=== PATIENT | female | born 1930 | race Caucasian/White ===

== ENCOUNTER → 2016-10-13 | Outpatient (CLI) | payer BC ==
[~2016-10-13] MED LIST: ACET325T96 PO; ALUMSUS17 PO; ATOR-24 PO; CETI10TA84 PO; CHOL100010 PO; CHOL200027; CYAN10005 PO; DICL1GEL28 TD; DIPH25TA24 PO; ESTR1CRE PV; FERR1TAB13 PO; FLUT0.15; HYDR-5688 PO; IMD/2 PO; INSDGI SC; LEVO50TA PO; LOSA1TAB PO; MAGNSUS5 PO; MELA3CAP PO; NOVOLOG U; NYSTCRE11; OMEP20CA59 PO; PRM625 PO; PSYL55.43 PO; SERT-234 PO
[2016-10-13 17:00] LABS: HEMATOCRIT 35.2 % (37-47); MEAN CELL VOLUME 99.4 fL (80-100); MEAN CORPUSCULAR HEMOGLOBIN 33.1 pg (25-34); MEAN CORPUSCULAR HGB CONC 33.2 g/dl (32-36); MEAN PLATELET VOLUME 9.5 fL (7.4-10.4); PLATELET COUNT 260 K/uL (130-400); RED BLOOD COUNT 3.54 M/uL (4.2-5.4); WHITE BLOOD COUNT 8.59 K/uL (4.8-10.8)
[2016-10-13 17:18] LABS: URINE APPEARANCE CLEAR (CLEAR); URINE BILIRUBIN NEG (NEG); URINE COLOR YELLOW; URINE EPITHELIAL CELL AUTO >30 /lpf (0-5); URINE NITRITE NEG (NEG); URINE PH 5.5 (4.5-7.5); URINE SPECIFIC GRAVITY 1.028 (1.000-1.030); UROBILINOGEN NEG (NEG)
[2016-10-13 17:38] LABS: BLOOD UREA NITROGEN 14 mg/dl (7-18); CALCIUM 8.6 mg/dl (8.5-10.1); CARBON DIOXIDE 28 mmol/L (21-32); CHLORIDE 108 mmol/L (98-107); GLUCOSE 140 mg/dl (70-99); POTASSIUM 3.9 mmol/L (3.5-5.1); SODIUM 143 mmol/L (136-145)
[2016-10-13 17:38] LABS: MANUAL MICROSCOPIC REQUIRED? NO; REVIEW REQ? NO
[2016-10-13 17:41] LABS: URINE PROTIEN/CREAT RATIO 0.4 (0-0.2); URINE TOTAL PROTEIN 62.1 mg/dl (0-11.9)
[2016-10-13 17:50] LABS: FERRITIN 196.2 ng/ml (8.0-388.0); PHOSPHORUS 3.1 mg/dl (2.5-4.9); TOTAL IRON BINDING CAPACITY 261 mcg/dl (250-450)
[2016-10-14 06:06] LABS: ESTIMATED AVERAGE GLUCOSE 169 mg/dl; HA1C FLAG Normal (Normal)
--- NOTE | 2016-10-30 09:19 | CODING QUERY MEDICAL NECESSITY ---
SUPPORTING DIAGNOSIS NEEDED A supporting diagnosis is required for the test/procedure performed on this patient in order for us to be reimbursed by the patient's insurance. Please provide a supporting diagnosis for the following test/procedure listed below next to the test name along with your signature. *If there is no additional diagnosis for this patient that would support the following test/procedure please document that below next to the test/procedure. Test(s)/Procedure(s) that require a supporting diagnosis: DOS 10/13 * Hba1c DIAGNOSIS: Provider Signature: Date: Thank you Laney Medeiros Health Information Management Once completed, please kindly fax back to [phone] For questions please call [phone]
== END | disposition home or self-care (01) ==
LOC: C.LABBC 15:56
PROVIDERS: ATTEND Internal Medicine Geriatric Medicine
DX: D64.9 Anemia, unspecified (principal); I12.9 Hypertensive chronic kidney disease with stage 1 through stage 4 chronic kidney disease, or unspecified chronic kidney disease; E03.9 Hypothyroidism, unspecified; N18.3 Chronic kidney disease, stage 3 (moderate); E53.8 Deficiency of other specified B group vitamins; E55.9 Vitamin D deficiency, unspecified; E11.9 Type 2 diabetes mellitus without complications

== ENCOUNTER → 2017-04-16 | Outpatient (CLI) | payer BC ==
[2017-04-16 10:52] LABS: ALT/SGPT 14 U/L (12-78); AST/SGOT 16 U/L (15-37); BLOOD UREA NITROGEN 13 mg/dl (7-18); BUN/CREATININE RATIO 9.8 (10-20); CALCIUM 9.2 mg/dl (8.5-10.1); CARBON DIOXIDE 25 mmol/L (21-32); CHLORIDE 109 mmol/L (98-107); GLUCOSE 151 mg/dl (70-99); POTASSIUM 3.9 mmol/L (3.5-5.1); SODIUM 143 mmol/L (136-145)
[2017-04-16 10:55] LABS: ALB/GLOB RATIO 0.7 (0.9-2); ALKALINE PHOSPHATASE 51 U/L (45-117)
== END | disposition home or self-care (01) ==
LOC: C.LAB1850 08:57
PROVIDERS: ATTEND Physician Assistant
DX: N18.3 Chronic kidney disease, stage 3 (moderate) (principal)

== ENCOUNTER → 2017-05-18 | Outpatient (CLI) | payer BC ==
--- NOTE | 2017-05-18 10:37 | DIAGNOSTIC IMAGING REPORT ---
ABDOMINAL ULTRASOUND COMPLETE HISTORY: Generalized abdominal pain.. COMPARISON: Renal ultrasound 01/10/2014. FINDINGS: Pancreas: The pancreas demonstrates a normal echotexture. Liver: Unremarkable. Gallbladder: The gallbladder is surgically absent. CBD: 7 mm. Kidneys: No hydronephrosis. Mild bilateral cortical renal thinning which is likely age-related. Spleen: Normal in size. Aorta: Normal in caliber. IVC: Patent. IMPRESSION: No significant abnormality identified within the within the abdomen. Prior cholecystectomy. Electronically signed by: Henrique Joseph M.D. 05/18/2017 10:36 AM Dictated Date/Time: 05/18/2017 10:32 AM
[2017-05-18 13:35] LABS: BASO % 0.4 %; BASO ABS # 0.04 K/uL (0-0.2); COMPLETE YES; EOS % 2.4 %; HEMATOCRIT 35.8 % (37-47); IG% 0.5 %; LYMPH % 24.4 %; MEAN CELL VOLUME 102.6 fL (80-100); MEAN CORPUSCULAR HEMOGLOBIN 33.5 pg (25-34); MEAN CORPUSCULAR HGB CONC 32.7 g/dl (32-36); MEAN PLATELET VOLUME 9.6 fL (7.4-10.4); MONO % 7.3 %; PLATELET COUNT 294 K/uL (130-400); RED BLOOD COUNT 3.49 M/uL (4.2-5.4); WHITE BLOOD COUNT 9.83 K/uL (4.8-10.8)
[2017-05-18 13:58] LABS: URINE PROTIEN/CREAT RATIO 0.3 (0-0.2)
[2017-05-18 15:01] LABS: ESTIMATED AVERAGE GLUCOSE 169 mg/dl; HA1C FLAG Normal (Normal)
[2017-05-18 16:16] LABS: ALT/SGPT 23 U/L (12-78); BLOOD UREA NITROGEN 19 mg/dl (7-18); BUN/CREATININE RATIO 13.5 (10-20); CALCIUM 8.8 mg/dl (8.5-10.1); CARBON DIOXIDE 25 mmol/L (21-32); CHLORIDE 107 mmol/L (98-107); CREATININE 1.43 mg/dl (0.60-1.20); GLUCOSE 125 mg/dl (70-99); POTASSIUM 4.2 mmol/L (3.5-5.1); SODIUM 141 mmol/L (136-145)
[2017-05-18 16:30] LABS: ALB/GLOB RATIO 0.7 (0.9-2); ALKALINE PHOSPHATASE 53 U/L (45-117); AST/SGOT 20 U/L (15-37); CHOLESTEROL 144 mg/dl (0-200); CHOLESTEROL/HDL RATIO 2.6; HDL CHOLESTEROL 56 mg/dl; LDL CHOLESTEROL CALCULATED 60 mg/dl; TRIGLYCERIDES 138 mg/dl (0-150); VERY LOW DENSITY LIPOPROT CALC 28 mg/dl
== END | disposition home or self-care (01) ==
LOC: C.ULTRBC 09:17
PROVIDERS: ATTEND Internal Medicine Geriatric Medicine
DX: R10.9 Unspecified abdominal pain (principal); E03.9 Hypothyroidism, unspecified; E78.5 Hyperlipidemia, unspecified; R35.1 Nocturia; E53.8 Deficiency of other specified B group vitamins; I10 Essential (primary) hypertension; E55.9 Vitamin D deficiency, unspecified; N18.3 Chronic kidney disease, stage 3 (moderate); E11.40 Type 2 diabetes mellitus with diabetic neuropathy, unspecified; D64.9 Anemia, unspecified; G62.9 Polyneuropathy, unspecified; Z90.49 Acquired absence of other specified parts of digestive tract

== ENCOUNTER → 2017-12-18 | Outpatient (CLI) | payer BC ==
[~2017-12-18] MED LIST changes: +ACET-1693 PO; -ACET325T96 PO
--- NOTE | 2017-12-18 12:42 | DIAGNOSTIC IMAGING REPORT ---
BILATERAL LOWER EXTREMITY VENOUS DOPPLER HISTORY: Acute bilateral lower extremity swelling B/L SWELLING,DIASTOLIC DISFUNCTION COMPARISON STUDY: None. FINDINGS: There is normal compressibility, flow, and augmentation within the bilateral lower extremity deep venous systems. IMPRESSION: No sonographic evidence of deep venous thrombosis within the right or left lower extremity. Electronically signed by: Paul Wong M.D. 12/18/2017 12:41 PM Dictated Date/Time: 12/18/2017 12:40 PM
--- NOTE | 2017-12-18 22:50 | ECHOCARDIOGRAM REPORT ---
*NOTICE TO RECEIVING REPUBLICAN AGENCY This information is strictly Confidential and protected under [place] law. [place] law prohibits you from making any further disclosure of this information unless further disclosure is expressly permitted by the written consent of the person to whom it pertains or is authorized by law. A general authorization for the release of medical or other information is not sufficient for this purpose. Hospital accepts no responsibility if the information is made available to any other person, INCLUDING THE PATIENT. Interpretation Summary * Name: LEN BOWLING Study Date: 12/18/2017 12:28 PM BP: 124/74 mmHg * Patient Location: [facility] HR: 63 * : 1930 (M/d/yyyy) Gender: Female Height: 60 in * Age: 87 yrs Ethnicity: [place] Weight: 226 lb * Ordering Physician: Alan Vogt * Referring Physician: Alan Vogt * Performed By: Terra Mccloud [facility] * * Reason For Study: DIASTOLIC DYSFUNCTION * BSA: 2.0 m2 * -- Conclusions -- * 1. Normal left ventricular size with low-normal systolic function. EF 50-55%. No regional wall motion abnormalities. Mild concentric left ventricular hypertrophy. Type 1 diastolic dysfunction. * 2. Sclerotic aortic valve without significant stenosis based on spectral Doppler findings. Upon visual inspection, aortic valve appears mildly stenotic. * 3. Mild aortic regurgitation. * 4. There is mild mitral regurgitation. * 5. Technically difficult study. * 6. No prior study available for comparison. Procedure Details * A complete two-dimensional transthoracic echocardiogram was performed (2D, M-mode, Doppler and color flow Doppler). Left Ventricle * Normal left ventricular size with low-normal systolic function. EF 50-55%. No regional wall motion abnormalities. Mild concentric left ventricular hypertrophy. Type 1 diastolic dysfunction. Right Ventricle * The right ventricle is normal in size and function. * The right ventricular systolic function is normal as assessed by tricuspid annular plane systolic excursion (TAPSE) (normal >1.5 cm). Atria * The left atrial size is normal. * Right atrial size is normal. * There is no evidence of atrial septal defect, but resolution does not allow assessment for a patent foramen ovale. Mitral Valve * There is mild to moderate mitral annular calcification. * There is no mitral valve stenosis. * There is mild mitral regurgitation. Tricuspid Valve * The tricuspid valve is not well visualized, but is grossly normal. * There is no tricuspid stenosis. * There is trace tricuspid regurgitation. Aortic Valve * The aortic valve is trileaflet. * Sclerotic aortic valve without significant stenosis based on spectral Doppler findings. Upon visual inspection, aortic valve appears mildly stenotic. Mild aortic regurgitation. * Mild aortic regurgitation. Pulmonic Valve * The pulmonary valve is inadequately visualized, but the Doppler data is adequate for interpretation. * There is no pulmonic valvular stenosis. * Trace pulmonic valvular regurgitation. Great Vessels * The aortic root is normal size. Pericardium/Pleural * There is no pericardial effusion. Great Vessels * Normal inferior vena cava size and collapsability with sniff indicates a normal right atrial pressure of 3 mmHg MMode 2D Measurements and Calculations IVSd 1.3 cm LVIDd 4.3 cm LVIDs 3.2 cm LVPWd 1.3 cm IVS/LVPW 0.98 FS 26.2 % EDV(Teich) 82.9 ml ESV(Teich) 40.1 ml EF(Teich) 51.7 % EDV(cubed) 79.3 ml ESV(cubed) 31.9 ml EF(cubed) 59.8 % LV mass(C)d 203.8 grams LV mass(C)dI 103.7 grams/m\S\2 SV(Teich) 42.8 ml SI(Teich) 21.8 ml/m\S\2 SV(cubed) 47.4 ml SI(cubed) 24.1 ml/m\S\2 Ao root diam 3.6 cm Ao root area 10.2 cm\S\2 LA dimension 3.8 cm LA/Ao 1.1 LVOT diam 2.2 cm LVOT area 3.8 cm\S\2 Doppler Measurements and Calculations MV E max neli 85.7 cm/sec MV A max neli 113.2 cm/sec MV E/A 0.76 MV V2 max 119.9 cm/sec MV max PG 5.8 mmHg MV V2 mean 62.4 cm/sec MV mean PG 1.8 mmHg MV V2 VTI 31.8 cm MVA(VTI) 2.0 cm\S\2 MV P1/2t max neli 88.9 cm/sec MV P1/2t 102.3 msec MVA(P1/2t) 2.1 cm\S\2 MV dec slope 254.4 cm/sec\S\2 MV dec time 0.32 sec Ao V2 max 201.5 cm/sec Ao max PG 16.2 mmHg Ao max PG (full) 14.6 mmHg Ao V2 mean 144.8 cm/sec Ao mean PG 9.3 mmHg Ao mean PG (full) 8.4 mmHg Ao V2 VTI 45.6 cm OSCAR(I,A) 1.4 cm\S\2 OSCAR(I,D) 1.4 cm\S\2 OSCAR(V,A) 1.2 cm\S\2 OSCAR(V,D) 1.2 cm\S\2 AI max neli 388.0 cm/sec AI max PG 60.2 mmHg AI dec slope 212.2 cm/sec\S\2 AI P1/2t 535.6 msec LV V1 max PG 1.6 mmHg LV V1 mean PG 0.95 mmHg LV V1 max 63.9 cm/sec LV V1 mean 44.9 cm/sec LV V1 VTI 16.4 cm MR max neli 477.9 cm/sec MR max PG 91.3 mmHg SV(Ao) 462.8 ml SI(Ao) 235.4 ml/m\S\2 SV(LVOT) 62.8 ml SI(LVOT) 32.0 ml/m\S\2 PA V2 max 63.8 cm/sec PA max PG 1.6 mmHg PI max neli 170.0 cm/sec PI max PG 11.6 mmHg PI dec slope 108.7 cm/sec\S\2 PI P1/2t 457.9 msec
== END | disposition home or self-care (01) ==
LOC: C.ULTR 11:39
PROVIDERS: ATTEND Internal Medicine Geriatric Medicine
DX: I51.9 Heart disease, unspecified (principal); R60.0 Localized edema